=== PATIENT | female | born 1955 | race African-American/Black ===

== ENCOUNTER 2017-02-07 07:04 | Emergency (ER) | payer BC ==
--- NOTE | 2017-02-07 08:02 | UC ---
FLU HPI - HPI Summary HPI Summary: Patient c/o fever, cough, nasal congestion, bodyaches and diarrhea for the past 4 days. Denies any nausea, vomiting and has been able to eat and drink normally. History of HIV for the past two and half years, on Triumeq. States she is under the care of Dr. Dunn and Dr. Munguia for ID, last CD4 on file is 333 in March 2016. Patient states she had a more recent blood test and that she was undetectable. Has follow up with PCP in April 2017 - History of Current Complaint Chief Complaint: UCRespiratory Stated Complaint: FEVER Time Seen by Provider: 02/07/17 07:22 - Allergy/Home Medications Allergies/Adverse Reactions: Allergies Allergy/AdvReac Type Severity Reaction Status Date / Time Penicillins [PCN] Allergy Unknown Verified 02/07/17 07:08 Reaction Details Home Medications: Home Medications Aspirin Low Dose CHEW TAB* [Aspirin Low Dose TAB*] 81 mg PO DAILY 02/07/17 [ History Confirmed 02/07/17] Citalopram Hydrobromide 40 mg PO EVERY OTHER DAY 02/07/17 [History Confirmed 11/16] Diltiazem CD CAP* [Cardizem CD CAP*] 2 tab PO DAILY 02/07/17 [History Confirmed 02/07/17] Hydrochlorothiazide TAB* [Hydrodiuril TAB*] 25 mg PO DAILY 02/07/17 [History Confirmed 02/07/17] Lisinopril TAB* [Prinivil TAB 10 MG*] 40 mg PO DAILY 02/07/17 [History Confirmed 02/07/17] Pravastatin Sodium [Pravachol] 40 mg PO DAILY 02/07/17 [History Confirmed ] Triumeq 600-50-300 mg 1 tab PO DAILY 02/07/17 [History Confirmed 02/07/17] Zolpidem TAB* [Ambien*] 10 mg PO BEDTIME 02/07/17 [History Confirmed 02/07/17] buPROPion TAB* [Wellbutrin TAB*] 300 mg PO DAILY 02/07/17 [History Confirmed 11/16] PMH/Surg Hx/FS Hx/Imm Hx Cardiovascular History: Hypertension Psychological History: Depression Other History Of: HIV - Surgical History Surgical History: None - Family History Known Family History: Positive: Diabetes - Social History Alcohol Use: None Substance Use Type: None Smoking Status (MU): Current Every Day Smoker - Immunization History Most Recent Influenza Vaccination: 5'5 Most Recent Tetanus Shot: 167 Review of Systems Constitutional: Fever, Chills, Other - aches, myalgias Respiratory: Cough Musculoskeletal: Myalgia Is Patient Immunocompromised?: Yes All Other Systems Reviewed And Are Negative: Yes Physical Exam Triage Information Reviewed: Yes Appearance: Ill-Appearing, Obese Vital Signs: Initial Vital Signs Temp 99.7 F 02/07/17 07:17 Pulse 63 02/07/17 07:17 Resp 18 02/07/17 07:17 BP 126/45 02/07/17 07:17 Pulse Ox 98 02/07/17 07:17 Vital Signs Reviewed: Yes Eyes: Positive: Conjunctiva Clear ENT Exam: Normal Dental Exam: Other - cavities Neck exam: Normal Respiratory Exam: Normal Cardiovascular Exam: Normal Abdominal Exam: Normal Bowel Sounds: Positive: Present Flu Course/Dx - Course Course Of Treatment: PO fluids, BRAT diet, avoid caffeine, dairy, follow up PCP in 1 week - Differential Dx/Diagnosis Provider Diagnoses: tobacco use. Viral gastroenteritis. Viral URI. HIV Discharge - Discharge Plan Condition: Stable Disposition: HOME Forms: *Work Release Referrals: Eri Dunn MD [Primary Care Provider] -
[2017-02-07 09:06] VITALS: BP 142/66
--- NOTE | 2017-02-07 09:27 | RAD ---
INDICATION: Cough, fever. HIV positive. History of tobacco use. COMPARISON: August 28, 2008 TECHNIQUE: Dual energy PA and routine lateral views of the chest were obtained. REPORT: Elevated lung volumes and both diffuse mild prominence of the interstitial markings and patchy rarefaction of the mid to upper lung zone interstitial markings. Negative for pulmonary infiltrate, focal pulmonary lesion, or pleural effusion. Negative for pneumothorax. The heart, pulmonary vasculature, and mediastinal contours are unremarkable. IMPRESSION: Stigmata of obstructive lung disease. No acute pulmonary or cardiac process evident.
== END 2017-02-07 09:58 | disposition home or self-care (01) ==
LOC: UCEAST 07:04
DX: A08.4 Viral intestinal infection, unspecified (principal); J06.9 Acute upper respiratory infection, unspecified; B20 Human immunodeficiency virus [HIV] disease; J44.9 Chronic obstructive pulmonary disease, unspecified; F17.210 Nicotine dependence, cigarettes, uncomplicated; I10 Essential (primary) hypertension; F32.9 Major depressive disorder, single episode, unspecified; Z79.82 Long term (current) use of aspirin; Z88.0 Allergy status to penicillin
CPT/HCPCS: 71020; 99212; G0463